=== PATIENT | male | born 1985 | race Caucasian/White ===

== ENCOUNTER 2024-07-19 12:21 | Emergency (ER) | payer OTHER, SELFPAY ==
[2024-07-19 12:31] VITALS: BP 113/78; PULSE 59; RESP 16; TEMP 36.2; O2SAT 99
--- NOTE | 2024-07-19 12:34 | ED.GENADULT ---
HPI - General Adult General Chief complaint: Urogenital-Male Stated complaint: GROIN PAIN Time Seen by Provider: 07/19/24 12:34 Source: patient, RN notes reviewed and old records reviewed Mode of arrival: ambulatory Limitations: no limitations History of Present Illness HPI narrative: 39-year-old male to [facility] Care with complaint right testicular pain, groin discomfort radiating into lower abdomen for 1.5 weeks. 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 Patient reports that he also recently moved and has been rearranging furniture and heavy objects as result. Patient denies any known injury or specific extraneous activity, patient denies urinary changes, bowel changes, risk for STI, allergies, pertinent medical history. Patient states that he has not done any self testicular exam so is unsure of any abnormalities that may be present. Patient resting comfortably in exam room with no acute distress. Respirations even and nonlabored. Related Data Allergies Allergy/AdvReac Type Severity Reaction Status Date / Time No Known Allergies Allergy Verified 07/19/24 14:11 Review of Systems Review of Systems: All systems reviewed & are unremarkable except as noted in HPI and below Constitutional: Constitutional: Reports no additional constitutional complaints Eyes: Eyes: Reports no additional eye complaints ENT: Reports system reviewed and no additional complaints, except as documented Cardiovascular: Cardiovascular: Reports no additional cardiovascular complaints, Denies chest pain and Denies dyspnea Respiratory: Respiratory: Reports no additional respiratory complaints, Denies cough and Denies dyspnea Musculoskeletal: Musculoskeletal: Reports no additional musculoskeletal complaints Neurologic: Reports system reviewed and no additional complaints, except as documented Psychiatric: Psychiatric: Reports no additional psychiatric complaints PMFSH Comments At the time of my signature, I reviewed and agree with the nursing past medical, surgical, social, and family history. There is no relevant family history pertinent to the patient complaint. Exam Const: General: cooperative, healthy appearing, comfortable, no acute distress, alert and well nourished Nutritional Appearance: well nourished Orientation/consciousness: patient oriented x3 Limitations: no limitations HENMT: Head: normal to inspection Ears: external ears normal Face/Nose/Sinus: Normal external nose present, Normal nares present, normal facial exam, No erythema and No edema Face and sinus: normal facial exam, no erythema and no edema Mouth: Yes Normal oral and palatal mucosa present Eyes: General: appearance normal, both eyes and all related structures Neck: Neck: normal visual inspection, full ROM and no meningeal signs Lymphatic: no lymphadenopathy noted and no lymphedema noted Chest: Chest palpation & inspection: normal inspection of the chest Resp: Effort & Inspection: normal respiratory effort and able to speak in complete sentences Auscultation: clear to auscultation bilaterally Cardio: Jugular venous distension: no JVD Rate: regular rate Rhythm: regular rhythm Back/Spine/Pelvis: Cervical Spine: cervical ROM normal Skin: General skin exam: normal color, no rashes or lesions noted and turgor normal Neuro: General: patient oriented x3, gait normal, moves all extremities and no meningeal signs Speech: normal speech Gait exam (Neuro): Normal gait present Extrem: General: normal to inspection, full ROM and capillary refill normal Psych: Appearance: grossly normal and well kempt Course Course Emergency Course: Some parts of this dictation were generated by voice recognition software and may contain typographical and/or grammatical inaccuracies. Level of Care: Express Care Visit Vital Signs Vital signs: Vital Signs Temperature 36.2 C L 07/19/24 12:31 Pulse Rate 59 L 07/19/24 12:31 Respiratory Rate
== END 2024-07-19 13:50 | disposition short-term general hospital (02) ==
PROVIDERS: Emergency Provider Nurse Practitioner Family
DX: R10.30 Lower abdominal pain, unspecified (principal)
CPT/HCPCS: 99212; G0463

== ENCOUNTER 2024-07-19 14:10 | Emergency (ER) | payer OTHER, SELFPAY ==
--- NOTE | ~2024-07-19 | US_ITS ---
TESTICULAR ULTRASOUND (Doppler ultrasound interrogation techniques used as needed for this exam.) Ordering provider: Pablo Maurice MD History: . pain . Comparison: None. FINDINGS: TESTICLES: Normal in size. The right measures 4.4x 2.1x 3.7 cm and the left measures 3.6x 2x 2.9 cm. Normal echogenicity bilaterally without mass lesion. Normal Doppler flow bilaterally. EPIDIDYMIDES: Normal in size. The right measures 1x 1 cm and the left 1.1x 1.2 cm. Normal echogenicit y bilaterally. Both demonstrate normal Doppler flow. Small cysts seen in the left epididymis measurin g 0.4 x0.4 x 0.4 cm. HYDROCELE: None. VARICOCELE: None. The right measures 1.2 cm and the left 0.26 cm. OTHER ABNORMALITY: None seen. IMPRESSION: Small left epididymal cyst. Otherwise, normal testicular ultrasound. Reviewed, dictated and finalized at location A.
--- NOTE | ~2024-07-19 | CT_ITS ---
EXAMINATION: CT abdomen pelvis w con DATE: 07/19/2024 17:20 INDICATION: lower ab pain TECHNIQUE: Computed tomography (CT) of the abdomen and pelvis was performed with 100 mL Omnipaque-350 intravenous contrast. Automated exposure control and iterative reconstruction technique were employe d. The dose-length product was 919.34 mGy-cm. COMPARISON: None. FINDINGS: Lower thorax: Mild dependent atelectasis. Mild bilateral gynecomastia. Liver: 2.6 cm right lobe hemangioma. Additional subcentimeter hypodensities likely representing cysts or hemangiomas. Biliary/Gallbladder: Gallbladder is normal. No bile duct dilation. Pancreas: No mass or duct dilation. Spleen: Normal. Adrenals:No mass. Kidneys: No suspicious mass, obstructing stone, or hydronephrosis. GI tract: Mild distal esophageal and gastric wall edema. No small or large bowel dilation. Normal andrew endix. Mesentery/Peritoneum: No ascites, mass, or free air. Retroperitoneum: No mass. Pelvis: Pelvic organs are within normal limits. Soft Tissues: Small fat-containing uncomplicated umbilical hernia. Bones: No acute osseous finding. IMPRESSION: No acute abdominopelvic process detected. Reviewed, dictated and finalized at location K.
[2024-07-19 14:11] VITALS: BP 122/57; PULSE 57; RESP 18; TEMP 36.4; O2SAT 97
--- NOTE | 2024-07-19 15:44 | ED.GENADULT ---
HPI - General Adult General Chief complaint: Urogenital-Male Stated complaint: testicular pain Time Seen by Provider: 07/19/24 14:59 History of Present Illness HPI narrative: 39-year-old male presenting to the emergency department for evaluation for right testicular pain. 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 Patient was concerned about the possibility of a hernia. Patient states he does have some scrotal pain that does radiate to his abdomen. Patient denies any specific incident of falls or injuries. Patient denies any high-risk sexual behavior. Denies any cough colds or fevers. Related Data Allergies Allergy/AdvReac Type Severity Reaction Status Date / Time No Known Allergies Allergy Verified 07/19/24 14:11 Review of Systems Review of Systems: All systems reviewed & are unremarkable except as noted in HPI and below Exam Narrative: APPEARANCE: Well appearing, no pain, no distress, well-nourished. HEAD: normocephalic, atraumatic. EYES: PERRLA/EOMI, conjunctivae clear. NOSE: Normal no drainage EARS:TMS clear with good light reflex. THROAT: Pharynx clear, no exudate. NECK: Supple. No adenopathy, no masses. RESPIRATORY: Airway patent, respirations nonlabored. Clear to auscultation bilaterally, no rales, rhonchi, wheezing. CARDIOVASCULAR: Regular rate and rhythm without murmurs rubs or gallops. ABDOMINAL: Soft, nontender, nondistended, normal bowel sounds MUSCULOSKELETAL: Moves all extremities. Strength/ROM intact, No edema, No calf tenderness. NEURO: Alert. Cranial nerves II through XII intact. Grossly intact General exam: Normal scrotal exam SKIN: Warm, dry. Normal Color Course Course Emergency Course: Imaging was negative for acute pathology. Patient was updated results of his workup. Vital Signs Vital signs: Vital Signs Temperature 97.5 F L 07/19/24 14:11 Pulse Rate 57 L 07/19/24 14:11 Respiratory Rate 18 07/19/24 14:11 Blood Pressure 122/57 L 07/19/24 14:11 Pulse Oximetry 97 07/19/24 14:11 Oxygen Delivery Room Air 07/19/24 14:11 Temperature 97.5 F L 07/19/24 14:11 Pulse Rate 57 L 07/19/24 14:11 Respiratory Rate 18 07/19/24 14:11 Blood Pressure 122/57 L 07/19/24 14:11 Pulse Oximetry 97 07/19/24 14:11 Oxygen Delivery Room Air 07/19/24 14:11 Medical Decision Making MDM Narrative Medical decision making narrative: 39-year-old male present to the emergency department for evaluation for right testicular pain. Patient is afebrile with no leukocytosis and stable hemoglobin. Patient has no acute abnormalities on his CMP. UA was negative for infection. Ultrasound was ordered did show high left-sided epididymal cyst with no other acute abnormalities. Patient was complaining of some associated abdominal pains a CT was ordered also showed no acute abnormalities. Patient was updated results of his workup was comfortable plan for discharge and close follow-up Differential Diagnosis Differential Diagnosis: Epididymitis, varicocele, hydrocele, torsion, UTI, hernia Vital Signs Vital Signs: Vital Signs Temperature 97.5 F L 07/19/24 14:11 Pulse Rate 57 L 07/19/24 14:11 Respiratory Rate 18 07/19/24 14:11 Blood Pressure 122/57 L 07/19/24 14:11 Pulse Oximetry 97 07/19/24 14:11 Oxygen Delivery Room Air 07/19/24 14:11 Temperature 97.5 F L 07/19/24 14:11 Pulse Rate 57 L 07/19/24 14:11 Respiratory Rate 18 07/19/24 14:11 Blood Pressure 122/57 L 07/19/24 14:11 Pulse Oximetry 97 07/19/24 14:11 Oxygen Delivery Room Air 07/19/24 14:11 Lab Data 07/19/24 16:46 07/19/24 16:46 Labs: Lab Results 07/19/24 07/19/24 Range/Units 16:23 16:46 WBC 8.2 (4.5-10.0) K/mm3 RBC 5.29 (4.6-6.20) M/mm3 Hgb 15.0 (14.0-18.0) g/dL Hct 43.7 (42.0-52.0) % MCV 82.6 (80-100) fl MCH 28.4 (26-34) pg MCHC 34.3 (32-36) g/dl RDW 12.2 (11.5-14.5) % Plt Count
[2024-07-19 16:34] LABS: Add Urine Microscopic? NO; Appearance Urine Clear (Clear); Bilirubin Urine Negative (Negative); Blood Urine Negative (Negative); Color Urine Yellow (Yellow); Glucose Urine UA Negative (Negative); Ketones Urine Negative (Negative); Leukocyte Esterase Ur Negative LEU/UL (Negative); Nitrate Urine Negative (Negative); Protein Urine Negative (Negative); Specific Grav Ur 1.017 (1.001-1.035); Urobilinogen Urine 0.2 mg/dL (<2.0); pH Urine 5.5 (5.0-9.0)
[2024-07-19] MEDS: SODIUM CHLORIDE 0.9% IV 1,000 ML 999 ML IV CONT (16:36)
[2024-07-19 16:52] LABS: Basophils Absolute Auto 0.1 K/mm3 (0.0-0.1); Basophils Percent Auto 1.2 % (0.2-1.2); Eosinophils Absolute Auto 0.2 K/mm3 (0-0.3); Eosinophils Percent Auto 2.2 % (0-4.4); Hematocrit 43.7 % (42.0-52.0); Immature Granulocyte Absolute 0.08 K/mm3 (0.00-0.031); Lymphocytes Percent Auto 26.7 % (18.3-44.2); Mean Corpuscular HGB Conc 34.3 g/dl (32-36); Mean Corpuscular Hemoglobin 28.4 pg (26-34); Mean Corpuscular Volume 82.6 fl (80-100); Mean Platelet Volume 8.3 fl (7.4-10.4); Monocytes Absolute Auto 0.5 K/mm3 (0.1-0.6); Monocytes Percent Auto 5.5 % (2.6-8.5); Neutrophils Absolute Auto 5.2 K/mm3 (1.3-6.7); Neutrophils Percent Auto 63.4 % (45.5-73.1); Platelet Count Result 292 k/mm3 (150-375); Red Blood Count 5.29 M/mm3 (4.6-6.20); Red Cell Distribution Width 12.2 % (11.5-14.5); White Blood Count 8.2 K/mm3 (4.5-10.0)
[2024-07-19 17:03] LABS: Alanine Aminotransferase 23 U/L (6-50); Albumin Level 4.7 g/dL (3.5-5.1); Alkaline Phosphatase 125 U/L (38-126); Anion Gap 10 mmol/L (4-12); Aspartate Amino Transferase 30 U/L (17-59); Bilirubin,Total 0.4 mg/dL (0.2-1.3); Blood Urea Nitrogen 15 mg/dL (9-20); Carbon Dioxide 28 mmol/L (22-30); Chloride 99 mmol/L (98-107); Estimated CRCL calculation 101 ml/min; Estimated Glomerular Filt Rate > 60; Glucose 132 mg/dL (65-110); Potassium 3.8 mmol/L (3.4-5.0); Sodium 137 mmol/L (137-145)
== END 2024-07-19 17:50 | disposition home or self-care (01) ==
PROVIDERS: Emergency Provider Emergency Medicine
DX: R10.31 Right lower quadrant pain (principal)
CPT/HCPCS: 36415; 74177; 76870; 80053; 81003; 85025; 93976; 96360; 99284; J7030; Q9967